=== PATIENT | male | born 2000 | race Caucasian/White ===

== ENCOUNTER 2019-02-19 05:15 | Inpatient (IN) ==
[2019-02-19] MEDS ORDERED: MOM Conc 10 ML UD.LIQ PO PRN (06:44)
[2019-02-19] MEDS ORDERED: Acetaminophen 325 MG TABLET PO PRN (06:44)
[2019-02-19] MEDS ORDERED: Mag Hydrox/Al Hydrox/Simeth 30 ML UDC PO PRN (06:44)
[2019-02-19] MEDS ORDERED: Haloperidol Lactate 5 MG/ML VIAL IM PRN (06:44)
[2019-02-19] MEDS ORDERED: *HR* LORazepam 1 MG TABLET PO PRN (06:44)
[2019-02-19] MEDS ORDERED: *HR* LORazepam 2 MG/ML VIAL IM PRN (06:44)
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
[2019-02-19] MEDS: hydrOXYzine pamoate 25 MG CAPSULE PO PRN (21:30)
[2019-02-19] MEDS: traZODone 50 MG TABLET PO PRN (21:30)
--- NOTE | 2019-02-20 10:19 | Psychiatry Progress Note ---
Date of Encounter: 02/20/19 Time of Encounter: 09:45 Subjective Interval history: Patient continues to report anxiety and depression with sad mood, decreased interest and suicidal ideations and hopelessness. He required Vistaril and trazodone yesterday for anxiety and insomnia. He has been paranoid about staff trying to hurt him and giving him minutes that were in fact medications that made him ill.. He is tolerating the medications. Review of Systems Psychiatric: Reports: depression (endorses hyper-reactivity to sensory input specifically to sounds.), anhedonia (experienced depersonalization last few days but not endorsing now.). Denies: anxiety, abnormal sleep pattern, suicidal ideation, auditory hallucinations, visual hallucinations Results - Vital Signs Vital Signs: Temp Pulse Resp BP Pulse Ox 97.2 F L 59 18 128/88 99 02/19/19 20:03 02/19/19 20:03 02/19/19 20:03 02/19/19 20:03 02/19/19 20:03 Assessment and Plan (1) Depressed Current visit: Yes Status: Acute Plan: Continue hospitalization, Close observation, Suicide Precautions per unit protocol, Encourage participation in unit milieu, Group Therapy, Monitor sleep, Monitor appetite Additional Plan: Visit with the addition of an antipsychotic. Continue sertraline. Encourage group attendance. Risks, benefits, side effects, alternatives discussed w/pt: Yes Patient agreeable to treatment: Yes Qualifiers: Depression Type: major depressive disorder Major depression recurrence: recurrent Active/Remission status: currently active Major depression episode severity: severe Psychotic features: with psychotic features Qualified Code(s): F33.3 - Major depressive disorder, recurrent, severe with psychotic symptoms Consult Discharge Plan - Plan Referrals: [facility] [Other] - 03/18/19 9:00 am (You have an appointment scheduled for February at 9:[address] James Roy for medication management. Please contact the office at least 24 hours in advance if you are unable to keep your appointment(s). ) [facility] [Outside] - 03/04/19 10:00 am (You have an appointment scheduled for February at 10:00 AM with Immanuel Wright for an initial intake assessment. This appointment typically takes 1 1 hours and will cover your current symptoms and goals for treatment. Please complete the New Patient Intake Packet provided to you by [facility] staff and bring this with you to this appointment. Please also bring your insurance card, identification, proof of residence (utility bill or similar piece of mail), and proof of income (if applicable). If you are unable to keep this appointment, please call the office at the number above as soon as possible.) Psychiatry Exam - Constitutional Vitals: Temp Pulse Resp BP Pulse Ox 97.2 F L 59 18 128/88 99 02/19/19 20:03 02/19/19 20:03 02/19/19 20:03 02/19/19 20:03 02/19/19 20:03 General appearance: age & developmentally appropriate - Musculoskeletal Gait: slow Station: stooped Strength & Tone: mild weakness - Psychiatric Patient Orientation: Yes Person, Yes Time, Yes Place, Yes Circumstance Level of alertness: Alert Behavior: guarded, suspicious Psychomotor activity: Slowed Eye Contact: Minimal Contact Mood Description: Anxious Patient description of mood: Worried Affect description: blunted Speech Volume: Soft/Quiet Speech pattern: slowed Language & Vocabulary: consistent with education Thought Process: Loose Associations Thought Content: Yes Suicidal ideation, No Homicidal ideation, Yes Paranoid delusion Perceptual Disturbances: No Auditory hallucinations, No Visual hallucinations Attention Span Ability: Capable of Focused Attention Memory Description: Grossly Intact Patient Reliability: Reliable Historian Fund of knowledge: Yes abstraction ability, Yes aware of current events Intelligence Estimate: Average Judgment: Poor Insight: None
--- NOTE | 2019-02-21 09:59 | Psychiatry Progress Note ---
Date of Encounter: 02/21/19 Time of Encounter: 09:30 Subjective Interval history: Patient reports he is feeling better. He denies suicidal ideations. He is more hopeful. However yesterday he was still noted to be tearful and curled up in a ball. He only ate lunch and only 50% of that. Review of Systems Psychiatric: Reports: depression (endorses hyper-reactivity to sensory input specifically to sounds.), anhedonia (experienced depersonalization last few days but not endorsing now.). Denies: anxiety, abnormal sleep pattern, suicidal ideation, auditory hallucinations, visual hallucinations Results - Vital Signs Vital Signs: Temp Pulse Resp BP Pulse Ox 97.9 F 61 14 139/69 100 02/20/19 20:31 02/20/19 20:31 02/20/19 20:31 02/20/19 20:31 02/20/19 20:31 Assessment and Plan (1) Depressed Current visit: Yes Status: Acute Plan: Continue hospitalization, Close observation, Suicide Precautions per unit protocol, Encourage participation in unit milieu, Group Therapy, Monitor sleep, Monitor appetite Additional Plan: Continue current medication. Encourage group therapy. Therapist to work on discharge plans. Risks, benefits, side effects, alternatives discussed w/pt: Yes Patient agreeable to treatment: Yes Qualifiers: Depression Type: major depressive disorder Major depression recurrence: recurrent Active/Remission status: currently active Major depression episode severity: severe Psychotic features: with psychotic features Qualified Code(s): F33.3 - Major depressive disorder, recurrent, severe with psychotic symptoms Consult Discharge Plan - Plan Referrals: [facility] [Other] - 03/18/19 9:00 am (You have an appointment scheduled for February at 9:[address] James Roy for medication management. Please contact the office at least 24 hours in advance if you are unable to keep your appointment(s). ) [facility] [Outside] - 03/04/19 10:00 am (You have an appointment scheduled for February at 10:00 AM with Immanuel Wright for an initial intake assessment. This appointment typically takes 1 1 hours and will cover your current symptoms and goals for treatment. Please complete the New Patient Intake Packet provided to you by staff and bring this with you to this appointment. Please also bring your insurance card, identification, proof of residence (utility bill or similar piece of mail), and proof of income (if applicable). If you are unable to keep this appointment, please call the office at the number above as soon as possible.) Psychiatry Exam - Constitutional Vitals: Temp Pulse Resp BP Pulse Ox 97.9 F 61 14 139/69 100 02/20/19 20:31 02/20/19 20:31 02/20/19 20:31 02/20/19 20:31 02/20/19 20:31 General appearance: age & developmentally appropriate - Musculoskeletal Gait: normal Station: relaxed Strength & Tone: normal for patient - Psychiatric Patient Orientation: Yes Person, Yes Time, Yes Place, Yes Circumstance Level of alertness: Alert Behavior: nervous Psychomotor activity: Slowed Eye Contact: Minimal Contact Mood Description: Depressed Patient description of mood: Better Affect description: congruent with mood Speech Volume: Soft/Quiet, No variation in volume Speech pattern: monotone Language & Vocabulary: consistent with education Thought Process: Linear, Goal Oriented Thought Content: No Suicidal ideation, No Homicidal ideation, No Overt delusions Perceptual Disturbances: No Auditory hallucinations, No Visual hallucinations Attention Span Ability: Capable of Focused Attention Memory Description: Grossly Intact Patient Reliability: Reliable Historian Fund of knowledge: Yes abstraction ability, Yes aware of current events Intelligence Estimate: Average Judgment: Limited Insight: Partial
[2019-02-21] MEDS: traZODone 50 MG TABLET PO PRN (21:36)
[2019-02-21] MEDS: hydrOXYzine pamoate 25 MG CAPSULE PO PRN (21:36)
[2019-02-22 10:09] VITALS: BP 122/85
--- NOTE | 2019-02-22 12:26 | Discharge Summary ---
Date of Encounter: 02/22/19 Time of Encounter: 09:00 Diagnosis - Discharge Diagnosis (1) Adjustment disorder with depressed mood Status: Resolved Medications - Discharge Medications Sertraline [Zoloft] 50 mg PO DAILY #30 tablet 02/22/19 [Rx] Allergy/AdvReac Type Severity Reaction Status Date / Time No Known Allergies Allergy Verified 02/19/19 16:32 Provider Date of admission: 02/19/19 05:15 Psychiatry Exam - Constitutional Vitals: Temp Pulse Resp BP Pulse Ox 97.7 F 74 16 122/85 98 02/22/19 09:00 02/22/19 09:00 02/22/19 09:00 02/22/19 09:00 02/22/19 09:00 General appearance: age & developmentally appropriate - Musculoskeletal Gait: normal Strength & Tone: normal for patient - Psychiatric Patient Orientation: Yes Person, Yes Time, Yes Place, Yes Circumstance Level of alertness: Alert Behavior: calm, cooperative Psychomotor activity: Normal Eye Contact: Maintains Eye Contact Mood Description: Euthymic/stable Affect description: congruent with mood Speech Volume: Normal Speech pattern: normal rate, normal rhythm, normal tone Language & Vocabulary: consistent with education Thought Process: Intact Thought Content: Yes Intact Perceptual Disturbances: Yes Reacting to internal stimuli Attention Span Ability: Capable of Focused Attention Memory Description: Grossly Intact Patient Reliability: Reliable Historian Fund of knowledge: Yes abstraction ability Intelligence Estimate: Average Judgment: Good Insight: Full Hospital Course Hospital course: Mr. Gauthier is a 18 year old male admitted 3 days ago on 02/19/19 for Suicidal thought and plan. Client recently discharged from after serving for 2 months. Client endorses issues with coping after discharge from service. History of diagnosis with ADHD and depression. Started on 50 mg Sert raline PO once daily. Client linked with [facility]. Initial intake at [facility] scheduled for 03/04/19 at 10 am and follow- up on 03/18/19 at 9 am. Client has regular apspetite and sleeping well. He states "I am looking forward to going home". Total time spent with client is greater than 30 minutes. Patient was educated on his diagnosis and the benefits, side effects and risks of treatment and alternative treatment options and was monitored for responsiveness and adverse side effects. Anxiety, mood and interest improved. Thoughts of self-harm subsided. Client is thinking clearly, good judgment and full insight. Client was able to attend both individual and group therapy sessions as well as meeting with psychiatrist daily. The client was educated primarily by verbal means about their diagnosis and manifestation in their life. The option for treatment including group and individual therapy programming was offered to the patient in the use of medications with all their potential risks, benefits, and side effects were discussed with the patient at length. The patient was given the opportunity to ask questions and was noted to participate in the treatment in the planning process. The patient felt ready and eager to be discharged from the inpatient psychiatric unit to continue on with treatment as an outpatient. The patient agreed that she is safe for this disposition. The patient was considered to be able to participate in informed consent and decision making with respect to medical, legal, and financial issues of the time of discharge. At the time of discharge the patient adamantly denied any concerns for lethality including suicidal or homicidal thoughts ideations or plans and was future oriented toward ongoing mental health care. v - Time Spent with Patient Total time spent providing and/or coordinating discharge services: Greater than 30 minutes Specific discharge activities: Linked with [facility]. Initial intake scheduled for 03/04 at 10 am and follow-up 03/18 at 9 am. Assessment and Plan - Patient/Caregiver Discharge Instructions Activity: resume usual activities as tolerated Diet: regular diet - Follow up Plan Follow up with: [facility] [Other] - 03/18/19 9:00 am (You have an appointment scheduled for February at 9:[address] James Roy for medication management. Please contact the office at least 24 hours in advance if you are unable to keep your appointment(s). ) [facility] [Outside] - 03/04/19 10:00 am (You have an appoi ntment scheduled for February at 10:00 AM with Immanuel Wright for an initial intake assessment. This appointment typically takes 1 1 hours and will cover your current symptoms and goals for treatment. Please complete the New Patient Intake Packet provided to you by [facility] staff and bring this with you to this appointment. Please also bring your insurance card, identification, proof of residence (utility bill or similar piece of mail), and proof of income (if applicable). If you are unable to keep this appointment, please call the office at the number above as soon as possible.) Overall status at discharge: Stable Disposition: Home, Self-Care Quality - Multiple Antipsychotics Patient discharged on 2 or more antipsychotic medications: No - Justification Documentation of: Other justification (Patient being discharged on Sertraline 50 mg and discontinued other PRNs while on unit.) - Attending Attestation I examined this patient and my medical decision-making was reviewed with the Resident Physician. I agree with the documented findings, disposition and treatment plan as described except to the extent set forth below. Client reports feeling much better. Denies SI, intent, or plan today. Denies HI/AH/VH. Bright, reactive, and future oriented. Expressing desire for discharge. Willing to be linked with outpatient services.
== END 2019-02-22 15:30 | disposition home or self-care (01) | DRG 885 ==
LOC: 1ANU 05:15
PROVIDERS: ADMIT Psychiatry & Neurology Psychiatry; ATTEND Psychiatry & Neurology Psychiatry

== ENCOUNTER 2021-10-13 21:45 | Inpatient (IN) ==
[2021-10-14 00:18] LABS: Influenza A PCR Negative (Negative); Influenza B PCR Negative (Negative); Resp. Syncytial Virus PCR Negative (Negative)
[2021-10-14 00:19] LABS: SARS-CoV-2 by PCR (In House) Negative (Negative)
[2021-10-14] MEDS ORDERED: *HR* LORazepam 1 MG TABLET PO PRN (00:26)
[2021-10-14] MEDS ORDERED: Haloperidol Lactate 5 MG/ML VIAL IM PRN (00:26)
[2021-10-14] MEDS ORDERED: haloperidoL 5 MG TABLET PO PRN (00:26)
[2021-10-14] MEDS ORDERED: *HR* LORazepam 2 MG/ML VIAL IM PRN (00:26)
[2021-10-14] MEDS ORDERED: traZODone 50 MG TABLET PO PRN (00:26)
[2021-10-14] MEDS: Acetaminophen 325 MG TABLET PO PRN (01:05)
[2021-10-14] MEDS: hydrOXYzine pamoate 25 MG CAPSULE PO PRN ×2 (01:05→20:23)
[2021-10-14] MEDS: ARIPiprazole 5 MG TABLET PO SCH (11:12)
[2021-10-14] MEDS ORDERED: traZODone 50 MG TABLET PO SCH (21:00)
[2021-10-15] MEDS: ARIPiprazole 5 MG TABLET PO SCH (09:30)
[2021-10-15] MEDS: QUEtiapine Fumarate 25 MG TABLET PO SCH (20:36)
[2021-10-15] MEDS: Acetaminophen 325 MG TABLET PO PRN (20:36)
[2021-10-15] MEDS: hydrOXYzine pamoate 25 MG CAPSULE PO PRN (20:36)
[2021-10-16] MEDS: Acetaminophen 325 MG TABLET PO PRN ×2 (11:11→20:50)
[2021-10-16] MEDS: hydrOXYzine pamoate 25 MG CAPSULE PO PRN ×2 (16:18→20:51)
[2021-10-16] MEDS: QUEtiapine Fumarate 25 MG TABLET PO SCH (20:50)
[2021-10-17] MEDS: hydrOXYzine pamoate 25 MG CAPSULE PO PRN ×3 (08:52→17:26)
[2021-10-17] MEDS: Acetaminophen 325 MG TABLET PO PRN (18:56)
[2021-10-17] MEDS: QUEtiapine Fumarate 25 MG TABLET PO SCH (20:37)
[2021-10-17 21:19] VITALS: BP 136/72; PULSE 87; TEMP 98.2; O2SAT 99
== END 2021-10-17 21:15 | disposition home or self-care (01) | DRG 751 ==
LOC: EMEROOARM 21:45 → 1ANU 10-14 00:23
PROVIDERS: ADMIT Psychiatry & Neurology Psychiatry; ATTEND Psychiatry & Neurology Psychiatry